=== PATIENT | female | born 1990 ===

== ENCOUNTER → 2019-03-14 | Outpatient (CLI) | payer OTHER ==
[~2019-03-14] MED LIST: CODE1TAB37 PO
== END | disposition home or self-care (01) ==
LOC: PRENATAL 13:26
DX: O99.213 Obesity complicating pregnancy, third trimester (principal); O09.293 Supervision of pregnancy with other poor reproductive or obstetric history, third trimester; O09.93 Supervision of high risk pregnancy, unspecified, third trimester

== ENCOUNTER 2019-04-10 12:23 | Inpatient (IN) | payer OTHER ==
[~2019-04-10] VITALS: Ht 172.7 cm; Wt 3.6 kg
[2019-04-10] MEDS ORDERED: OBSTETRIX DHA1 EACH PO (13:37)
[2019-04-10] MEDS ORDERED: ASA81 MG PO (13:38)
[2019-04-10] MEDS ORDERED: FOLIC ACID0.4 MG PO (13:38)
[2019-04-13] MEDS ORDERED: Tylenol #3 PO (09:08)
== END 2019-04-13 10:52 | disposition home or self-care (01) | DRG 785 ==
LOC: LDR 12:23 → OB/GYN 12:41 → LDR 12:41 → OB/GYN 22:17
PROVIDERS: ADMIT Obstetrics & Gynecology
PROC: 0UL70ZZ Occlusion of Bilateral Fallopian Tubes, Open Approach (ICD-10-PCS; 2019-04-10)
PROC: 4A1HXCZ Monitoring of Products of Conception, Cardiac Rate, External Approach (ICD-10-PCS; 2019-04-10)
PROC: 10D00Z1 Extraction of Products of Conception, Low, Open Approach (ICD-10-PCS; principal; 2019-04-10 20:00)
DX: O82 Encounter for cesarean delivery without indication (principal); O14.14 Severe pre-eclampsia complicating childbirth; Z3A.38 38 weeks gestation of pregnancy; Z37.0 Single live birth; Z30.2 Encounter for sterilization; Z22.330 Carrier of Group B streptococcus